=== PATIENT | male | born 1965 | race African-American/Black ===

== ENCOUNTER 2021-01-15 00:48 | Emergency (ER) | payer OTHER, SELFPAY ==
[2021-01-15] MEDS ORDERED: diphenhydrAMINE 50 MG/ML VIAL ONE (01:27)
[2021-01-15] MEDS ORDERED: Famotidine/PF 20 mg/2ml Vial ONE (01:27)
[2021-01-15] MEDS ORDERED: methylPREDNISolone Sod Succ/PF 125 MG/2 ML VIAL ONE (01:27)
== END 2021-01-15 03:51 | disposition home or self-care (01) ==
LOC: ERS 00:48
DX: T78.3XXA Angioneurotic edema, initial encounter (principal); I10 Essential (primary) hypertension
CPT/HCPCS: 96374; 96375; J1200; J2930; S0028

== ENCOUNTER 2021-03-20 03:47 | Emergency (ER) | payer SELFPAY ==
[2021-03-20] MEDS ORDERED: predniSONE 20 MG TAB ONE (04:44)
[2021-03-20] MEDS ORDERED: Famotidine 20 MG TAB ONE (04:44)
[2021-03-20] MEDS ORDERED: diphenhydrAMINE 25 MG CAP ONE (04:44)
== END 2021-03-20 06:45 | disposition home or self-care (01) ==
LOC: ERS 03:47
DX: T78.3XXA Angioneurotic edema, initial encounter (principal); I10 Essential (primary) hypertension; Z79.899 Other long term (current) drug therapy
CPT/HCPCS: 99283; J7512; Q0163

== ENCOUNTER 2022-07-06 21:07 | Emergency (ER) | payer SELFPAY ==
[2022-07-06] MEDS ORDERED: Proparacaine 0.5% Opth 15 ML BOT ONE (21:38)
[2022-07-06] MEDS ORDERED: Fluorescein Opthalmic Strip ONE (21:39)
== END 2022-07-06 22:18 | disposition home or self-care (01) ==
LOC: ERS 21:07
DX: S05.02XA Injury of conjunctiva and corneal abrasion without foreign body, left eye, initial encounter (principal); I10 Essential (primary) hypertension; X58.XXXA Exposure to other specified factors, initial encounter
CPT/HCPCS: 99283